=== PATIENT | male | born 1960 | race Caucasian/White ===

== ENCOUNTER 2019-02-05 14:45 | Observation (INO) ==
[2019-02-05] MEDS ORDERED: ASPIRIN PO ONE (14:58)
[2019-02-05] MEDS ORDERED: ASPIRIN PR ONE (14:58)
[2019-02-05 15:23] LABS: BASO# 0.03 X1000 (0.0-0.2); BASO% 0.4 % (0.0-0.8); EOS# 0.23 X1000 (0.0-0.7); EOS% 2.9 % (0.0-10.0); HEMATOCRIT 44.2 % (42.0-52.0); HEMOGLOBIN 15.6 g/dL (14.0-18.0); IMM GRAN# 0.02 X1000 (0.0-0.04); IMM GRAN% 0.2 % (0.0-0.5); LYMPH# 2.31 X1000 (1.2-3.4); LYMPH% 28.7 % (20.5-51.1); MCH 30.5 PG (27-31); MCHC 35.3 g/dL (33-37); MCV 86.3 FL (81-99); MONO# 0.74 X1000 (0.11-0.59); MONO% 9.2 % (1.7-9.3); NEUT# 4.72 X1000 (1.4-6.5); NEUT% 58.6 % (42.2-75.2); PLT 228 X1000 (130-400); RBC 5.12 XMIL (4.7-6.1); RDW 12.6 % (11.5-14.5); WBC 8.05 X1000 (4.8-10.8)
[2019-02-05 15:36] LABS: INR 0.85
[2019-02-05 15:37] LABS: PTT 27.5 Seconds (22.3-41.8)
[2019-02-05 15:39] LABS: ALBUMIN 4.2 g/dL (3.5-5.0); CALCIUM 9.2 mg/dL (8.8-10.2); CREATININE 1.4 mg/dL (0.7-1.2); POTASSIUM 4.1 mmol/L (3.5-5.1); TOTAL BILIRUBIN 0.4 mg/dL (0.20-1.00); TOTAL PROTEIN 7.5 g/dL (6.3-8.3)
--- NOTE | 2019-02-05 15:49 | EKG Report ---
Test Performed on : 02/05/2019 2:49:25 PM Test Reason : SOB Blood Pressure : / mmHG Vent. Rate : 095 BPM Atrial Rate : 095 BPM P-R Int : 168 ms QRS Dur : 078 ms QT Int : 354 ms P-R-T Axes : 047 041 057 degrees QTc Int : 444 ms Normal sinus rhythm. Possible Left atrial enlargement Borderline ECG No previous ECGs available Unconfirmed Result
--- NOTE | 2019-02-05 16:14 | Diag Imaging Result Doc PS360 ---
EXAM: CHEST-1 VIEW HISTORY: SOB TECHNIQUE: PA and Lateral chest x-ray COMPARISON: None. FINDINGS: The cardiomediastinal silhouette is within normal limits. The pulmonary vasculature is not congested. No infiltrate, effusion, or pneumothorax is appreciated. IMPRESSION: No acute cardiopulmonary abnormality is identified. Electronically signed by Nuris Patel 02/05/2019 4:11 PM
[2019-02-05 17:55] LABS: I-STAT CREATININE 1.7 mg/dL (0.6-1.3)
--- NOTE | 2019-02-05 19:02 | PROVIDER DOCUMENTATION ---
This chart was entered by Edda Cohen Scribe, acting as scribe for Hayden Osei MD. HPI-Respiratory General - General Source: patient, family, EMS - History of Present Illness-Resp Quality of Pain: reports: none Severity in ED: reports: mild Onset/Duration: reports: last night Timing: reports: still present, intermittent Exposure: reports: unknown cause Cough Quality/Degree: reports: no cough Episode Frequency: no prior episodes Current Respiratory Medication Therapy: Initiated see nurses note Modifying Factors: improves with: oxygen, sitting upright. worse with: exertion Associated Symptoms: reports: heart racing, shortness of breath. denies: chest pain/soreness, cough, dizziness, fever/chills, wheezing Similar Symptoms Previously?: No Recently seen or treated by another doctor?: No <Hayden Oesi - Last Filed: 02/05/19 19:01> <Connor Blair - Last Filed: 02/05/19 19:58> - General Chief Complaint: Shortness of Breath Stated Complaint: CHEST PAIN Time Seen by Provider: 02/05/19 14:51 Allergies/Adverse Reactions: Patient Allergies Allergy/AdvReac Type Severity Reaction Status Date / Time No Known Allergies Allergy Verified 02/05/19 14:52 Home Medications: Home Medication List Medication Instructions Recorded Confirmed Last Taken Type Hydrocodone/APAP 5 mg/325 mg 1 ea PO Q6H PRN PRN #12 tab 10/31/18 Unknown Rx [[place]-5] Ketorolac [Toradol] 10 mg PO Q8HR PRN #9 tab 10/31/18 Unknown Rx Methocarbamol [Robaxin] 500 mg PO Q6HR PRN #20 tab 10/31/18 Unknown Rx - History of Present Illness-Resp Nature of Presenting Problem: 58 yowm presents to te ed via pov with c/o sob and left arm tightness. pt denies chest pain. pt sts onset was last night but has been constant since 1200pm today (Hayden Osei) Review of Systems - Adult - REVIEW OF SYSTEMS - ADULT Constitutional: reports: no symptoms reported Eyes: reports: no symptoms reported Ears, Nose, Mouth & Throat: reports: no symptoms reported Cardiovascular: reports: palpitations. denies: chest pain, syncope Respiratory: reports: shortness of breath. denies: cough, wheezing Gastrointestinal: denies: abdominal pain, diarrhea, nausea, vomiting Genitourinary: reports: no symptoms reported Musculoskeletal: reports: see HPI, other (left arm tightness). denies: back pain, neck pain Integumentary: reports: no symptoms reported Neurological: denies: dizziness/vertigo, headache/migraines Psychiatric: reports: no symptoms reported Endocrine: reports: no symptoms reported Hematologic/Lymphatic: reports: no symptoms reported Allergic/Immunologic: reports: no symptoms reported All Other Systems: Reviewed and Negative <Hayden Osei - Last Filed: 02/05/19 19:01> Past History - Adult - PAST MEDICAL HISTORY-ADULT Review of Records: reports: Nursing Assessment Review, Medications Reviewed Major Childhood Illnesses: reports: denies history Cardiovascular: reports: CAD, HTN Respiratory: reports: denies history Gastrointestinal: reports: denies history Genitourinary: reports: denies history Musculoskeletal: reports: denies history Hand Dominance: Right Handed Neurological: reports: denies history Endocrine/Immune: reports: denies history Other Conditions: reports: denies history - PRIOR SURGERIES/PROCEDURES Surgical/Procedure History: reports: cardiac stent, orthopedic (extremity) - IMMUNIZATION STATUS Childhood Immunizations: See Nurse Assessment Flu Vaccine: See Nurse Assessment - FAMILY HISTORY Family History: reviewed, not pertinent - SOCIAL HISTORY Smoking: quit greater than 1 year Substance Use: denies Living Situation: family <Hayden Osei - Last Filed: 02/05/19 19:01> Physical Exam-General - PHYSICAL EXAM-ADULT Initial Vital Signs Reviewed: Yes - CONSTITUTIONAL General Appearance: appears well, alert, mild distress (pt sts sx are improving) - EYES Eyes: PERRL/EOMI, pink conjunctivae - HEAD, EARS, NOSE, MOUTH & THROAT HENMT: moist mucous membranes, normal ENT inspection - NECK Neck: non-tender, full range of motion, supple, normal inspection - RESPIRATORY Respiratory: chest non-tender, lungs clear, normal breath sounds - CARDIOVASCULAR Cardiovascular: normal peripheral pulses, regular rate, rhythm - CHEST (BREASTS) Chest/Breast: normal breast inspection - GASTROINTESTINAL (ABDOMEN) Abdominal Exam: normal bowel sounds, non tender, soft - GENITOURINARY Male Genitalia: deferred Rectal Exam: deferred Hemoccult Exam: deferred - LYMPHATIC Lymphatic: no adenopathy - MUSCULOSKELETAL Back Exam: normal inspection, no CVA tenderness, no vertebral tenderness Extremity: normal range of motion, non-tender, normal gait, normal inspection, no pedal edema, no calf tenderness, normal capillary refill, pelvis stable - SKIN Integumentary: normal color, normal turgor, warm/dry - NEUROLOGIC Neurologic: grossly normal, no motor/sensory deficits <Hayden Osei - Last Filed: 02/05/19 19:01> - HEART Score HEART Score: History: Slightly Suspicious HEART Score: ECG: Normal HEART Score: Age: 45-65 Years HEART Score: Risk Factors for Atherosclerotic Disease: 1 or 2 Risk Factors HEART Score: Troponin: < or = Normal Limit Total HEART Score:: 2 <Hayden Osei - Last Filed: 02/05/19 19:01> Progress - PLAN OF CARE/RESULTS Result Diagrams: 02/05/19 15:00 02/05/19 15:00 - REASSESSMENT Reassessment #1 Time Reassessed: 16:51 Status: improving - EKG 1 Time of EKG reading by physician:: 14:49 EKG Read and Signed by:: Hayden Osei EKG Interpretation (*Must complete 3 of following elements*): Normal (borderline) Rate: 95 Rhythm: nsr [place]: normal QRS: other (possible left atrial enlargement) FL Interval: normal ST Wave: normal - XRAY 1 XRAY: Bilateral XRAY Study: Chest Impression: See EMR Report (EXAM: CHEST-1 VIEW HISTORY: SOB TECHNIQUE: PA and Lateral chest x-ray COMPARISON: None. FINDINGS: The cardiomediastinal silhouette is within normal limits. The pulmonary vasculature is not congested. No infiltrate, effusion, or pneumothorax is appreciated. IMPRESSION: No acute cardiopulmonary abnormality is identified. Electronically signed by Nuris Patel 02/05/2019 4:11 PM 02/05/19 1611 Interpreting Physician: Nuris Patel MD Dictated Date/Time: 02/05/19 161 cc: Hayden Osei MD;) - CHANGE OF SHIFT REPORT (ED Provider) 1 Report Given and Care Transferred to:: [facility] Time of Transfer: 19:02 Items Pending: Labs, Physician Consult/Arrival <Hayden Osei - Last Filed: 02/05/19 19:01> - PLAN OF CARE/RESULTS Result Diagrams: 02/05/19 15:00 02/05/19 15:00 - CONSULTS/PCP/HOSPITALIST Notification #1 *Consult/PCP/Hospitalist*: DR AKBAR Time Discussed: 19:35 Reason/Comments: ADMIT OBS, TROPS X2 AND ECHO Consult Disposition: Admit <Connor Blair - Last Filed: 02/05/19 19:58> - PLAN OF CARE/RESULTS Progress/Plan/Lab Results: Vital Signs - 8 hr 02/05/19 14:47 02/05/19 16:06 02/05/19 17:26 Temperature 97.5 F L 98.2 F Pulse Rate 94 H 96 H 94 H Respiratory Rate 17 18 15 Blood Pressure 137/92 111/69 122/71 O2 Sat by Pulse Oximetry 97 96 94 L 02/05/19 19:18 Temperature Pulse Rate 87 Respiratory Rate 14 Blood Pressure 103/72 O2 Sat by Pulse Oximetry 97 Laboratory Results - last 24 hr 02/05/19 02/05/19 02/05/19 15:00 15:00 15:00 WBC 8.05 RBC 5.12 Hgb 15.6 Hct 44.2 MCV 86.3 MCH 30.5 MCHC 35.3 RDW Std Deviation 12.6 Plt Count 228 MPV 11.0 H Immature Gran % (Auto) 0.2 Neut % (Auto) 58.6 Lymph % (Auto) 28.7 Wayne % (Auto) 9.2 Eos % (Auto) 2.9 Baso % (Auto) 0.4 Immature Gran # (Auto) 0.02 Neut # (Auto) 4.72 Lymph # (Auto) 2.31 Wayne # (Auto) 0.74 H Eos # (Auto) 0.23 Baso # (Auto) 0.03 PT INR PTT (Actin FS) Sodium 137 Potassium 4.1 Chloride 97 L Carbon Dioxide 18 L Anion Gap 22 BUN 24 H POC Venous BUN Creatinine 1.4 H POC Venous Creatinine Estimated GFR/1.73 m2 52 BUN/Creatinine Ratio 17 Glucose 125 H Calculated Osmolality 279 Calcium 9.2 Total Bilirubin 0.40 AST 48 H ALT 92 H Alkaline Phosphatase 48 Creatine Kinase 76 Troponin T Bxs-K-Ihqintxayjs Pept 102 Total Protein 7.5 Albumin 4.2 Globulin 3.0 Albumin/Globulin Ratio 1.0 02/05/19 02/05/19 02/05/19 15:00 15:00 15:20 WBC RBC Hgb Hct MCV MCH MCHC RDW Std Deviation Plt Count MPV Immature Gran % (Auto) Neut % (Auto) Lymph % (Auto) Wayne % (Auto) Eos % (Auto) Baso % (Auto) Immature Gran # (Auto) Neut # (Auto) Lymph # (Auto) Wayne # (Auto) Eos # (Auto) Baso # (Auto) PT 12.0 INR 0.85 PTT (Actin FS) 27.5 Sodium Potassium Chloride Carbon Dioxide Anion Gap BUN POC Venous BUN 33 H Creatinine POC Venous Creatinine 1.7 H Estimated GFR/1.73 m2 BUN/Creatinine Ratio Glucose Calculated Osmolality Calcium Total Bilirubin AST ALT Alkaline Phosphatase Creatine Kinase Troponin T < 0.010 Pzc-W-Ifrfbdfnhab Pept Total Protein Albumin Globulin Albumin/Globulin Ratio 02/05/19 02/05/19 19:05 19:05 WBC RBC Hgb Hct MCV MCH MCHC RDW Std Deviation Plt Count MPV Immature Gran % (Auto) Neut % (Auto) Lymph % (Auto) Wayne % (Auto) Eos % (Auto) Baso % (Auto) Immature Gran # (Auto) Neut # (Auto) Lymph # (Auto) Wayne # (Auto) Eos # (Auto) Baso # (Auto) PT INR PTT (Actin FS) Sodium Potassium Chloride Carbon Dioxide Anion Gap BUN POC Venous BUN Creatinine POC Venous Creatinine Estimated GFR/1.73 m2 BUN/Creatinine Ratio Glucose Calculated Osmolality Calcium Total Bilirubin AST ALT Alkaline Phosphatase Creatine Kinase 65 Troponin T < 0.010 Rzs-P-Jginjdmyfwp Pept Total Protein Albumin Globulin Albumin/Globulin Ratio Orders Category Date Time Status Cardiac Monitoring DIRECTED Care 02/05/19 14:58 Active Oxygen Therapy- ED Nursing DIRECTED Care 02/05/19 14:58 Active Saline Loc NOW Care 02/05/19 14:58 Active CHEST-1 VIEW [RAD] Stat Exams 02/05/19 14:58 Completed CBC WITH ELECTRONIC DIFF [HEME] Stat Lab 02/05/19 15:00 Completed CK PROFILE [SP CHEM] Stat Lab 02/05/19 15:00 Completed CK PROFILE [SP CHEM] Stat Lab 02/05/19 19:05 Completed COMPREHENSIVE METABOLIC PANEL [CHEM] Stat Lab 02/05/19 15:00 Completed I-STAT BUN-CREAT [RESP] Routine Lab 02/05/19 15:20 Completed PRO B-NATRIURETIC PEPTIDE Stat Lab 02/05/19 15:00 Completed PROTIME WITH INR [COAG] Stat Lab 02/05/19 15:00 Completed PTT [COAG] Stat Lab 02/05/19 15:00 Completed TROPONIN T Stat Lab 02/05/19 15:00 Completed TROPONIN T Stat Lab 02/05/19 19:05 Completed Aspirin Med 02/05/19 14:58 Discontinued 300 mg FL NOW ONE Aspirin Med 02/05/19 14:58 Discontinued 325 mg PO NOW ONE CP/SOB/Palp >45 yrs of Age Stat Oth 02/05/19 14:58 Ordered EKG [EKG] Stat Ther 02/05/19 14:58 Draft EKG [EKG] Stat Ther 02/05/19 17:32 Ordered Departure <Hayden Osei - Last Filed: 02/05/19 19:01> - Departure Date of Disposition Decision: 02/05/19 Time of Disposition Decision: 19:29 Certified Medical Emergency: Emergent - Critical Care Note This patient required my direct & personal management of CC.: No <Connor Blair - Last Filed: 02/05/19 19:58> - Departure DIAGNOSIS: Chest pain Disposition: ADMITTED INPATIENT 09 Condition: Stable Referrals and Follow-Ups: None,PCP [Primary Care Provider] - Attestation - Physician/ GASTON Attestation Patient care was provided by Advanced Practice Provider:: No The physician spent face to face time with patient:: Yes Advanced Practice Provider documentation review:: Supervising physician onsite and consulted in the evaluation and care of this patient. The physician did have a face to face encounter with the patient. <Hayden Osei - Last Filed: 02/05/19 19:01> This chart was documented by the indicated scribe, (Edda Cohen Scribe) and accurately reflects the services I performed and decisions made by me, Hayden Osei MD, as attested by the provider's signature.
--- NOTE | 2019-02-05 23:37 | EKG Report ---
Test Performed on : 02/05/2019 7:26:24 PM Test Reason : CP repeat Blood Pressure : / mmHG Vent. Rate : 086 BPM Atrial Rate : 086 BPM P-R Int : 174 ms QRS Dur : 078 ms QT Int : 368 ms P-R-T Axes : 027 013 037 degrees QTc Int : 440 ms Normal sinus rhythm. Normal ECG When compared with ECG of 05-FEB-2019 14:49, (Unconfirmed) No significant change was found Unconfirmed Result
--- NOTE | 2019-02-06 02:44 | ED EKG INTERP ---
This chart was entered by Etelvina Neal Scribe, acting as scribe for Connor Blair MD. EKG Interpretation - EKG Time of EKG reading by physician:: 19:26 EKG Read and Signed by:: Connor Blair EKG Interpretation (*Must complete 3 of following elements*): Normal Rate: 86 Rhythm: NSR [place]: normal QRS: normal [place] Interval: normal ST Wave: normal Attestation - Physician/ GASTON Attestation Patient care was provided by Advanced Practice Provider:: No The physician spent face to face time with patient:: Yes Advanced Practice Provider documentation review:: Supervising physician onsite and consulted in the evaluation and care of this patient. The physician did have a face to face encounter with the patient. This chart was documented by the indicated scribe, (Etelvina Neal Scribe) and accurately reflects the services I performed and decisions made by me, Connor Blair MD, as attested by the provider's signature.
--- NOTE | 2019-02-06 03:30 | EKG Report ---
Test Performed on : 02/06/2019 02:56:55 AM Test Reason : heart racing Blood Pressure : / mmHG Vent. Rate : 136 BPM Atrial Rate : 138 BPM P-R Int : 000 ms QRS Dur : 092 ms QT Int : 326 ms P-R-T Axes : 000 033 104 degrees QTc Int : 490 ms Atrial fibrillation. with rapid ventricular response. Nonspecific T wave abnormality Abnormal ECG When compared with ECG of 05-FEB-2019 19:26, (Unconfirmed) Atrial fibrillation. has replaced Sinus rhythm. Vent. rate has increased BY [address] no longer elevated in Lateral leads Unconfirmed Result
[2019-02-06] MEDS ORDERED: CARDIZEM 100 MG/NS 100 MG/100 ML IVPB IV SCH (03:45)
[2019-02-06] MEDS ORDERED: CARDIZEM 125/NS 125 MG/125 ML IVPB IV SCH (06:21)
[2019-02-06 06:26] LABS: BASO# 0.06 X1000 (0.0-0.2); BASO% 0.9 % (0.0-0.8); EOS# 0.26 X1000 (0.0-0.7); EOS% 4.1 % (0.0-10.0); HEMATOCRIT 41.5 % (42.0-52.0); HEMOGLOBIN 14.6 g/dL (14.0-18.0); IMM GRAN# 0.03 X1000 (0.0-0.04); IMM GRAN% 0.5 % (0.0-0.5); LYMPH# 2.16 X1000 (1.2-3.4); LYMPH% 33.9 % (20.5-51.1); MCH 30.5 PG (27-31); MCHC 35.2 g/dL (33-37); MCV 86.6 FL (81-99); MONO# 0.64 X1000 (0.11-0.59); NEUT# 3.23 X1000 (1.4-6.5); NEUT% 50.6 % (42.2-75.2); PLT 220 X1000 (130-400); RBC 4.79 XMIL (4.7-6.1); RDW 12.7 % (11.5-14.5); WBC 6.38 X1000 (4.8-10.8)
[2019-02-06 07:01] LABS: ALBUMIN 3.9 g/dL (3.5-5.0); CALCIUM 8.9 mg/dL (8.8-10.2); CREATININE 1.3 mg/dL (0.7-1.2); POTASSIUM 3.7 mmol/L (3.5-5.1); TOTAL BILIRUBIN 0.3 mg/dL (0.20-1.00); TOTAL PROTEIN 6.6 g/dL (6.3-8.3)
[2019-02-06 08:24] LABS: CHOLESTEROL 192 mg/dL (0-200); HDL 19 mg/dL (35-55); TRIGLYCERIDES 822 mg/dL (39-160)
[2019-02-06 08:25] LABS: HEMOGLOBIN A1C 6.2 % (4.8-6.0)
--- NOTE | 2019-02-06 08:27 | EKG Report ---
Test Performed on : 02/06/2019 08:19:18 AM Test Reason : RE [facility] Blood Pressure : / mmHG Vent. Rate : 079 BPM Atrial Rate : 079 BPM P-R Int : 176 ms QRS Dur : 078 ms QT Int : 380 ms P-R-T Axes : 053 056 059 degrees QTc Int : 435 ms Normal sinus rhythm. Normal ECG When compared with ECG of 06-FEB-2019 02:56, (Unconfirmed) Sinus rhythm. has replaced Atrial fibrillation. Vent. rate has decreased BY 57 BPM Nonspecific T wave abnormality no longer evident in Inferior leads Nonspecific T wave abnormality no longer evident in Lateral leads Unconfirmed Result
[2019-02-06] MEDS ORDERED: LOVENOX SUBQ SCH (08:30)
[2019-02-06] MEDS ORDERED: NORVASC PO SCH (09:00)
[2019-02-06] MEDS ORDERED: TRICOR PO SCH (09:00)
[2019-02-06] MEDS ORDERED: VASOTEC PO SCH (09:00)
[2019-02-06] MEDS ORDERED: VITAMIN B-12 SL SCH (09:00)
[2019-02-06] MEDS ORDERED: FISH OIL CONCENTRATE PO SCH (09:00)
[2019-02-06] MEDS ORDERED: ASPIRIN EC PO SCH (09:00)
[2019-02-06] MEDS ORDERED: LOPRESSOR PO SCH (09:00)
[2019-02-06] MEDS ORDERED: CORDARONE PO SCH (09:00)
[2019-02-06] MEDS ORDERED: HUMULIN R (PARKWAY) SUBQ SCH (11:00)
--- NOTE | 2019-02-06 11:53 | GRADED EXERCISE REPORT ---
DATE: 02/06/2019 PROCEDURE: Lexiscan. ORDERING PHYSICIAN: Lencho. Briefly, this is a 58-year-old gentleman, who is undergoing Lexiscan. INDICATIONS: Chest pain. DESCRIPTION OF PROCEDURE IN DETAIL: Baseline heart rate 83, baseline blood pressure 142/91. The patient underwent 0.4 mg infusion of Regadenoson. His baseline EKG shows an ST depression in lead 3, otherwise nonspecific. He developed no chest pain during his procedure. There was no significant ST depression. By criteria, V 3 did drop exactly by 1, but it looked like more J- point. I felt it is still not consistent with a true depression. The test was felt to be clinically negative, electrically negative. Peak heart rate 122, peak blood pressure 170/92. Myocardial perfusion reported separately. Again clinically and electrically negative. cc: Hong Jamison MD
--- NOTE | 2019-02-06 13:48 | HISTORY AND PHYSICAL ---
PRIMARY CARE PROVIDER: Kathe Leon MD. PRIMARY MOBILE UI DESIGNER: James Harper MD. CHIEF COMPLAINT: Left arm tightness, shortness of breath, heart racing. HISTORY OF PRESENT ILLNESS: Mr. Alberto Lobo is a 58-year-old male with a medical history of coronary artery disease, 2 cardiac stents early 2017, hypertension, hyperlipidemia, and diabetes mellitus type 2 on oral medications, states that he had had cardiac stents either late of 2016 or early 2017 but was on Brilinta, a few months ago had right rotator cuff repair and was told to stop his Brilinta for good and that was okayed by Dr. Harper, his sugar reprocess operator head. He denies having any history of atrial fibrillation but states for at least 2 nights in a row has had some left arm tightness, palpitations, feeling like his heart was racing, along with shortness of breath and lightheadedness, states he even had a blackout spell and that is what brought him to the hospital. His symptoms had resolved once he got here but he was in normal sinus rhythm. Last night during the night, he developed a sudden onset of atrial fibrillation with a rapid ventricular response with a rate that got up to the 150s, this was probably around 3 a.m. and by the time 4 a.m. rolled around he had already converted back to sinus rhythm and that was without any medication. He has been initiated on amiodarone by mouth. Electrolytes are to be replaced, and his beta-shantal is resumed. He is going for a stress test today. His triglycerides are extremely high but it looks like he is on several medications for that as well. PAST MEDICAL HISTORY: 1. Coronary artery disease with 2 cardiac stents either late 2017 or early 2018 at [facility]. 2. Hypertension. 3. Hyperlipidemia. 4. Diabetes mellitus type 2 on oral diabetic medications. 5. CKD stage 2. Baseline creatinine 1.3-1.4 since 2017. PAST SURGICAL HISTORY: 1. PTCA, x2 cardiac stents either late 2016 or early 2017. 2. Right rotator cuff repair. 3. Appendectomy. 4. Back surgery L5 through S1. SOCIAL HISTORY: Quit smoking a good bit over 20 years ago, only smoked for about 3 years and it was less than a half pack per day. Denies alcohol or illicit drug use. FAMILY HISTORY: Mother diabetes, father had myocardial infarction in his early 30s. ALLERGIES: No known drug allergies. HOME MEDICATIONS: 1. Aspirin 81 mg p.o. daily. 2. Vitamin B12 sublingual daily. 3. Enalapril maleate 20 mg p.o. daily. 4. Fenofibrate 160 mg p.o. daily. 5. Metformin 1000 mg p.o. twice daily. 6. Jardiance 25 mg p.o. daily. 7. Lipitor 80 mg p.o. daily. 8. Metoprolol 50 mg p.o. twice daily. 9. Norvasc 5 mg p.o. daily. 10.Cardale-3 fish oil 1 capsule twice daily. 11.Semaglutide 1 mg subcutaneously every 7 days. REVIEW OF SYSTEMS: A 14-point review of systems are complete and all were negative except for those mentioned above in HPI. PHYSICAL EXAMINATION: VITAL SIGNS: Temperature 97.9, heart rate 74, respiratory rate 13, blood pressure 118/73, O2 saturation 99% on 2 L nasal cannula. He is 6 feet 5 inches tall, 231 pounds with a BMI of 27.5. GENERAL: Mr. Alberto Lobo is a 58-year-old male. He is in no acute distress. He is able to answer questions appropriately. HEENT: Atraumatic, normocephalic. Pupils equal, round, and reactive to light. Extraocular movements intact. Mucous membranes are moist. NECK: Trachea midline. CARDIOVASCULAR: S1, S2, regular rate and rhythm. No rubs, gallops, or murmurs. No lower extremity edema, Negative for JVD or carotid bruits. PULMONARY: Clear to auscultate, bilateral breath sounds. No accessory muscle use or work of breathing noted. GASTROINTESTINAL: Soft, nontender, nondistended, positive bowel sounds x4. EXTREMITIES: Moves all extremities equally with full range of motion. NEUROLOGIC: A and O x3, follows commands. Sensory is intact. SKIN: Warm, dry, intact. LABORATORY DATA: White blood cells 6000, hemoglobin 14, hematocrit 41, platelet count 220. D- dimer less than 0.27. Sodium 141, potassium 3.7, BUN 17, creatinine is 1.3, glucose 132. Hemoglobin A1c is 6.2. Calcium 8.9, bilirubin 0.30, AST 35, ALT 80. CK 56. Troponin less than 0.01. Albumin 3.9. Triglycerides 822, total cholesterol 192, HDL is 19. IMAGING: Chest x-ray: No acute cardiopulmonary abnormality. 02/05/2019 at 3 p.m., EKG normal sinus rhythm, no ST elevations, rate 95, QTc is 444, then at 5:30 p.m. normal sinus rhythm, rate 86, QTc of 440, then at nearly 3 a.m. on the 8th atrial fibrillation with RVR, rate 136, QTc 490, and then at 8 a.m. on the 8th again normal sinus rhythm, rate 79, QTc 435. ASSESSMENT AND PLAN: 1. Chest pain with shortness of breath and left arm tightness. This seems to be associated with the palpitations that he periodically has had over the last 2 days, so likely is caused from atrial fibrillation with rapid ventricular response, but serial cardiac enzymes have been ordered, echocardiogram, stress test. He is on aspirin. He is on statin and a beta-shantal. 2. Coronary artery disease history. Please see number 1. He has had 2 cardiac stents, was on Brilinta for a good bit over 12 months, so it has recently been stopped prior to his left rotator cuff surgery, and no need at that time for resuming anticoagulation for the stent. 3. Paroxysmal atrial fibrillation with rapid ventricular response. Electrolytes normalized. Rate got up to 150. His symptoms that he came in with seem to be related to the atrial fibrillation. He has been started on amiodarone. He did originally have a Cardizem drip ordered but that has never been started, and started weight-based Lovenox, will need to transition to something else, and his beta-shantal was also resumed. He denies missing any doses of his beta-shantal over the last couple of days, and he is on Vasotec. 4. Severe hypertriglyceridemia in the 800 range. His Lipitor is resumed. His fenofibrate is resumed. His fish oil resumed. 5. Diabetes mellitus type 2. His hemoglobin A1c is 6.2. He is on several oral diabetic medications, holding those for now but will resume if no need for IV dye. Diabetic diet, cardiac diet, sliding scale insulin, pattern blood glucoses. 6. Hypertension. Home medications continued. 7. Chronic kidney disease stage 2 currently stable. 8. Deep venous thrombosis prophylaxis, currently on weight-based Lovenox. Dictated by RICHIE Fernandez for Alexander Coon MD Addendum: Patient seen and examined by myself. Agree with RICHIE note. It reflects my assessment and plan. Patient is being admitted to hospital for chest pain and after being admitted to hospital he developed atrial fibrillation. Upon my examination he es back to sinus rhythm. Will order Lexiscan test, trend troponins and consult Cardiology. cc: RICHIE Fernandez MD [facility]
--- NOTE | 2019-02-06 14:23 | CARDIOLOGY CONSULTATION ---
DATE: 02/06/2019 INDICATION FOR CONSULTATION: Heart racing. HISTORY OF PRESENT ILLNESS: Mr. Lobo is a 58-year-old white male with a history of coronary disease with previous PCI who presented for evaluation of heart racing that woke him from sleep yesterday evening. This episode lasted for somewhere around 2 hours. He has had episodes like this previously one occurring in 2017 and resulted in a PCI. He reports compliance with his medications. He has not had any orthopnea and he has had no chest pain. PAST MEDICAL HISTORY: 1. Significant for coronary disease with last cardiac catheterization in July 2017 showing a normal left main. He had LAD with a long area of disease starting after a high diagonal with the more significant portion being 80%. This was treated with a drug-eluting stent. The circumflex had a proximal 30 to 40 percent lesion. RCA was normal. EF on that study was 60%. 2. Palpitations. 3. Hypertension. 4. Hyperlipidemia. 5. Diabetes. SOCIAL HISTORY: He is . FAMILY HISTORY: Significant for hypertension. REVIEW OF SYSTEMS: A 10 system review of systems is negative except for those mentioned in HPI. PHYSICAL EXAMINATION: Vital Signs: Afebrile, heart rate is 74, blood pressure 118/73. General: He is in no acute distress. HEENT: Oropharynx is moist. Normal dentition. Eye examination is pink conjunctivae. White sclerae. Neck: Examination shows no obvious thyromegaly or thyroid tenderness. CARDIOVASCULAR: He sounds to be in a regular rate and rhythm. He has no obvious murmurs. He has no S3. He has no lower extremity edema.Chest: Clear bilaterally. He has no increased work of breathing. Abdomen: Soft, nontender, nondistended. He has no obvious organomegaly. Skin: Warm and dry throughout without any rashes. Neurological: He is moving all extremities well. He has no lateralizing deficits. Psychiatric: Alert and oriented, pleasant. Normal mood and affect. PERTINENT DATA: The patient had a EKG checked at 14:49 yesterday showing sinus rhythm, rate of 95 beats per minute. Subsequent EKG yesterday at 19:26 sinus rhythm, no acute changes and final EKG February 06 at 2:56 a.m. seems to show what appears to be atrial fib rate of 136 beats per minute. Nonspecific ST-T changes. He had a chest x-ray performed demonstrating no evidence of acute abnormalities his lab data shows white count 6.3, hematocrit 41, platelet count is 220,000. His INR was normal. D-dimer normal. Sodium 141, potassium 3.7. His BUN is 27 with a creatinine of 1.3. His AST and ALT were mildly elevated. His cardiac enzymes are negative. His HDL is 19 and triglycerides of 822. ASSESSMENT: Mr. Lobo is a 58-year-old gentleman who seems to have presented with new onset of atrial fibrillation. PLAN: His echo is currently pending as is his stress test. If the stress test and echo are unremarkable, I would probably initiate him on Multaq 400 b.i.d., Eliquis was 5 mg b.i.d. and continue him on his other medications. He may be discharged at that point from a cardiovascular standpoint. He certainly needs more aggressive treatment of his triglycerides including diet and exercise, avoidance of alcohol. In addition, I would ensure that the patient has a TSH checked. He is already on fenofibrate high-intensity statin therapy and [place] 3 fatty acids. cc: Colby Bates MD
--- NOTE | 2019-02-06 15:25 | Diag Imaging Result Document ---
PROCEDURE NAME: MYOCARDIAL PERF SCAN, STR/REST - 02/06/2019 PROCEDURE PERFORMED: Lexiscan Cardiolite stress, Lexiscan by Dr. Jamison. DESCRIPTION OF PROCEDURE: Following Lexiscan infusion, Cardiolite was injected. There were 14.5 mCi of Cardiolite injected for the rest phase and 44.8 mCi of Cardiolite injected for the stress phase. Gated SPECT images were obtained in standard views. Images revealed significant chest wall and diaphragmatic attenuation. Normal left ventricular cavity size. Normal myocardial perfusion. Left ventricular ejection fraction of 77%. CONCLUSIONS: 1. Normal myocardial perfusion. 2. Left ventricular ejection fraction by gated SPECT was 77%. cc: MD Alexander Dubose MD
[2019-02-06] MEDS ORDERED: LEXISCAN ONE (15:29)
[2019-02-06 16:35] VITALS: BP 121/76
--- NOTE | 2019-02-06 18:33 | DISCHARGE SUMMARY ---
ADMISSION DATE: 02/05/2019 DISCHARGE DATE: 02/06/2019 The patient actually presented on 02/05/2019. Full admission history and physical done on 02/06/2019. Date of discharge is 02/06/2019. ADMISSION DIAGNOSES: 1. Chest pain with shortness of breath and left arm tightness. 2. Paroxysmal atrial fibrillation with rapid ventricular response this admission. 3. Coronary artery disease history. 4. Severe hypertriglyceridemia. 5. Diabetes mellitus type 2. 6. Hypertension. 7. Chronic kidney disease stage 2. DISCHARGE DIAGNOSES: 1. Chest pain with shortness of breath and left arm tightness, highly likely it was related to the atrial fibrillation. Stress test was negative. 2. Paroxysmal atrial fibrillation with rapid ventricular response, currently in sinus rhythm. He had an accelerated rate that went up to 150. He was started on amiodarone p.o. and Lovenox. Cardiology saw him and is starting him on Multaq and Eliquis for discharge. 3. Coronary artery disease history. Negative stress test. 4. Severe hypertriglyceridemia. Continue on Lipitor, fenofibrate, fish oil and Zetia was added. 5. Hypertension, stable. 6. Diabetes mellitus type 2. 7. Chronic kidney disease stage 2, stable. CONSULTATIONS: Dr. Bates with Cardiology. PROCEDURES: Patient had a myocardial perfusion scan showing normal perfusion. Stress test was normal. HOSPITAL COURSE: On 02/05/2019, Mr. Alberto Lobo, a 58-year-old male with a medical history of coronary artery disease, diabetes, hyperlipidemia presents with complaints of shortness of breath, heart racing and left arm tightness. He felt like it was his heart, as if he was having chest pain like he did in the past. He does have 2 cardiac stents. He even had a blackout spell from being light-headed when he was having palpitations. When he presented here, his heart rhythm was in normal sinus rhythm. Cardiac enzymes were negative. During the night around 3 a.m., he had a sudden onset of A-fib with RVR, rate 150s with return of symptoms. He was transferred to the ICU. Initially he was ordered Cardizem but he converted on his own. Electrolytes were normal. Cardiology saw him and ordered Multaq and Eliquis for him. DISCHARGE VITAL SIGNS: Temperature 97.9 degrees, heart rate 92, respiratory rate 17, blood pressure 143/79, oxygen saturation 97% on 2 liters. DISCHARGE LABORATORY DATA: White blood cell count 6000, hemoglobin 14, hematocrit 41, platelet count 220. D-dimer less than 0.27. Sodium 141, potassium 3.7, BUN 27, creatinine 1.3, glucose 132. Hemoglobin A1C 6.2. Calcium 8.9, magnesium 1.8, total bilirubin 0.3, AST 35, ALT 80. CK 56. Troponin less than 0.01. Albumin 3.9. Triglycerides 822. Total cholesterol 192 but LDL is unable to be calculated due to the high triglycerides. TSH is 3.4. PERTINENT IMAGING: Chest x-ray with no acute findings. EKG: He has had several, in order: normal sinus rhythm with rate 95; normal sinus rhythm with rate 86; atrial fibrillation with rapid ventricular response, rate 136 on 02/06/2019 at nearly 3 a.m.; normal sinus rhythm with rate 79 today at 08:[address] T wave changes. DISCHARGE DIET: Diabetic, cardiac. DISCHARGE ACTIVITY: As tolerated. DISCHARGE FOLLOWUP: With Cardiology. DISCHARGE MEDICATIONS: 1. Aspirin 81 mg p.o. daily. 2. Vitamin B12 sublingually daily. 3. Enalapril maleate 20 mg p.o. daily. 4. Fenofibrate 160 mg p.o. daily. 5. Metformin 1000 mg p.o. twice daily. 6. Jardiance 25 mg p.o. daily. 7. Lipitor 80 mg p.o. daily. 8. Metoprolol 50 mg p.o. twice daily. 9. Amlodipine 5 mg p.o. daily. 10.Fish oil p.o. twice daily. 11.Ozempic 100 mg subcutaneously every 7 days. New medications to be added include: Multaq, Eliquis and Zetia. DISCHARGE INSTRUCTIONS: Part of the discharge instructions per Dr. Bates is more aggressive treatment of the triglycerides including diet and exercise, avoidance of alcohol. He is to take the Eliquis and the Multaq as prescribed. If signs or symptoms return, he is to seek medical attention. DISCHARGE DISPOSITION: Home. Dictated by RICHIE Fernandez for Alexander Coon MD Addendum: Patient seen and examined by myself. Agree with RICHIE note. It reflects my assessment and plan. Patient is being discharged from hospital in stable condition and will be seen by primary care doctor in a week and by surgical technology instructor Dr. Harper in four weeks. cc: RICHIE Fernandez MD MTDD
[2019-02-06] MEDS ORDERED: MULTAQ PO SCH (21:00)
[2019-02-06] MEDS ORDERED: LIPITOR PO SCH (21:00)
[2019-02-06] MEDS ORDERED: ELIQUIS PO SCH (21:00)
[2019-02-06] MEDS ORDERED: ZETIA PO SCH (21:00)
== END 2019-02-06 16:40 | disposition home or self-care (01) ==
LOC: P.ED 14:45 → P.MEDSURG 14:45 → P.ICU 02-06 03:35
PROVIDERS: ATTEND Internal Medicine
CPT/HCPCS: 71010; 71045; 78452; 80053; 80061; 82550; 82565; 82948; 83036; 83735; 83880; 84443; 84484; 84520; 85025; 85379; 85610; 85730; 93005; 93017; 93306; 99284; A9270; A9500; J1650; J1815; J2785; XXXXX